=== PATIENT | male | born 1945 | race Asian ===

== ENCOUNTER 2020-07-06 13:56 | Emergency (ER) | payer OTHER ==
[2020-07-06] MEDS ORDERED: BACITRACIN ZINC OINT 1 PACKET TOP STA (15:23)
--- NOTE | 2020-07-06 15:27 | ED Physician Documentation ---
PD HPI SKIN - Stated complaint Stated Complaint: WOUND ON BACK - Chief complaint Chief Complaint: Wound - History obtained from History obtained from: Patient - Additional information Additional information: Patient comes emergency department complaining of drainage from a chronic wound on his back. Patient states that he has had a lump on his back for years but that over the last few days, he noticed that a smaller more tense lump formed on top of that. He states that he tried to squeeze it and he felt it pop and then he had white drainage out of it. Patient denies fevers or chills. No pain. He has no other complaints at this time. Review of Systems Ten Systems: 10 systems reviewed and negative Constitutional: reports: Reviewed and negative Eyes: reports: Reviewed and negative Ears: reports: Reviewed and negative Nose: reports: Reviewed and negative Throat: reports: Reviewed and negative Cardiac: reports: Reviewed and negative Respiratory: reports: Reviewed and negative GI: reports: Reviewed and negative : reports: Reviewed and negative Skin: reports: Other (Lesion) Musculoskeletal: reports: Reviewed and negative Neurologic: reports: Reviewed and negative Psychiatric: reports: Reviewed and negative Endocrine: reports: Reviewed and negative Immunocompromised: reports: Reviewed and negative PD PAST MEDICAL HISTORY - Past Medical History Cardiovascular: Hypertension, High cholesterol, Atrial fibrillation, Arrhythmia Respiratory: COPD, Emphysema, Pneumonia, Shortness of breath, Sleep apnea Endocrine/Autoimmune: None GI: Ulcers Psych: Depression Derm: None, Other - Past Surgical History Cardiovascular: AAA - Allergies Allergies/Adverse Reactions: Allergies Allergy/AdvReac Type Severity Reaction Status Date / Time pentazocine [From Talwin] Allergy Hallucinati Verified 07/06/20 14:08 ons - Social History Does the pt smoke?: Yes Smoking Status: Current every day smoker Does the pt drink ETOH?: Yes ETOH Use: Beer Does the pt have substance abuse?: No - Immunizations Immunizations are current?: Yes PD ED PE NORMAL - Vitals Vital signs reviewed: Yes - General General: Alert and oriented X 3, No acute distress - HEENT HEENT: Atraumatic, PERRL, EOMI, Moist mucous membranes - Neck Neck: Supple, no meningeal sign - Respiratory Respiratory: No respiratory distress - Derm Derm: Normal color, Warm and dry, No rash, Other (7 mm diameter chronic- appearing wound in patient's midline of mid back, with a small amount of thick, purulent drainage expressible. Surrounding tissue is not erythematous or indurated. There is no fluctuance. Tissue within the open wound appears healthy.) - Extremities Extremities: No deformity - Neuro Neuro: Alert and oriented X 3 - Psych Psych: Normal mood, Normal affect Results - Vitals Vitals: Vital Signs - 24 hr 07/06/20 07/06/20 14:00 15:35 Temperature 36.4 C L 36.4 C L Heart Rate 78 66 Respiratory 18 18 Rate Blood Pressure 109/69 122/76 O2 Saturation 99 97 Oxygen O2 Source Room air PD MEDICAL DECISION MAKING - ED course Complexity details: considered differential, d/w patient ED course: Drainage was expressed from the wound and the wound was irrigated with 0.9 normal saline. Dressing was placed. I discussed with the patient that I do not find any evidence of a cellulitis associated with his wound and that I do not feel he needs oral antibiotics for this. We have discussed wound care at home and the need for follow-up. Departure - Departure Disposition: 01 Home, Self Care Clinical Impression: Wound infection Condition: Stable Instructions: ED Wound Care Comments: The wound itself looks good, And just had some drainage that needed to be cleaned out. You may keep a bandage on top of it as long as it is oozing, and then just revert to a Band-Aid. The wound will heal itself over time. Discharge Date/Time: 07/06/20 15:35
[2020-07-06 15:37] VITALS: BP 122/76
== END 2020-07-06 15:35 | disposition home or self-care (01) ==
LOC: ED 13:56
DX: S31.000A Unspecified open wound of lower back and pelvis without penetration into retroperitoneum, initial encounter (principal); B96.89 Other specified bacterial agents as the cause of diseases classified elsewhere; X58.XXXA Exposure to other specified factors, initial encounter; I10 Essential (primary) hypertension; I48.91 Unspecified atrial fibrillation; F17.200 Nicotine dependence, unspecified, uncomplicated
CPT/HCPCS: 99282; A9270

== ENCOUNTER 2021-11-15 15:22 | Outpatient (CLI) | payer OTHER ==
[2021-11-15 15:38] LABS: BASOPHILS % (AUTO) 0.5 %; EOSINOPHILS # (AUTO) 0.2 10^3/uL (0.0-0.7); HGB - HEMOGLOBIN 14.6 g/dL (14.0-18.0); LYMPHOCYTES % (AUTO) 26.9 %; MEAN CORPUSCULAR HEMOGLOBIN 29.9 pg (27.0-31.0); MEAN CORPUSCULAR HGB CONC 33.2 g/dL (32.0-36.0); MEAN CORPUSCULAR VOLUME 90.2 fL (80.0-94.0); MEAN PLATELET VOLUME 9.8 fL (7.4-11.4); MONOCYTES # (AUTO) 0.6 10^3/uL (0.0-1.0); MONOCYTES % (AUTO) 8.3 %; NEUTROPHILS # (AUTO) 4.6 10^3/uL (1.5-6.6); PLT - PLATELET COUNT 178 10^3/uL (130-450); RED BLOOD COUNT 4.88 10^6/uL (4.70-6.10); RED CELL DISTRIBUTION WIDTH 14.1 % (12.0-15.0); WHITE BLOOD COUNT 7.5 x10^3/uL (4.8-10.8)
[2021-11-15 16:10] LABS: ALBUMIN 3.6 g/dL (3.2-5.5); ALBUMIN/GLOBULIN RATIO 1.1 (1.0-2.2); ALKALINE PHOSPHATASE 85 IU/L (42-121); ALT ALANINE AMINOTRANSFERASE 16 IU/L (10-60); AST ASPARTATE AMINOTRANSFERASE 24 IU/L (10-42); BILIRUBIN,TOTAL 1.3 mg/dL (0.2-1.0); BUN - BLOOD UREA NITROGEN 22 mg/dL (6-20); CALCIUM 9.2 mg/dL (8.5-10.3); CARBON DIOXIDE - CO2 24 mmol/L (21-32); CHLORIDE 101 mmol/L (101-111); CHOL/HDL RATIO 2.9 (<5.0); CHOLESTEROL 139 mg/dL; CREATININE 0.9 mg/dL (0.6-1.2); GFR - MDRD 82 (>89); GLUCOSE 106 mg/dL (70-100); HDL CHOLESTEROL 48 mg/dL; LDL CHOLESTEROL,CALCULATED 73 mg/dL; LDL/HDL RATIO 1.5 (<3.6); POTASSIUM 4.2 mmol/L (3.5-5.0); SODIUM 135 mmol/L (135-145); TOTAL PROTEIN 6.8 g/dL (6.7-8.2); TRIGLYCERIDES 91 mg/dL; VLDL CHOLESTEROL 18 mg/dL
[2021-11-15 16:11] LABS: THYROID STIMULATING HORMONE 1.12 uIU/mL (0.34-5.60)
[2021-11-15 19:55] LABS: ESTIMATED AVERAGE GLUCOSE 114 mg/dL (70-100); HEMOGLOBIN A1c% 5.6 % (4.27-6.07)
== END 2021-11-15 15:23 | disposition home or self-care (01) ==
LOC: LAB.R 15:22
PROVIDERS: ATTEND Nurse Practitioner Family
DX: I48.91 Unspecified atrial fibrillation (principal); E78.49 Other hyperlipidemia; I10 Essential (primary) hypertension; J44.9 Chronic obstructive pulmonary disease, unspecified
CPT/HCPCS: 80053; 80061; 81599; 82172; 82306; 82607; 83036; 83721; 84153; 84443; 85025

== ENCOUNTER 2021-11-18 08:00 | Outpatient (CLI) | payer MEDICARE, OTHER ==
[2021-11-18 19:04] LABS: BILIRUBIN,URINE NEGATIVE (NEGATIVE); CLARITY,URINE CLEAR (CLEAR); GLUCOSE, URINE (UA) NEGATIVE (NEGATIVE); KETONES,URINE (UA) NEGATIVE (NEGATIVE); LEUKOCYTE ESTERASE, URINE NEGATIVE (NEGATIVE); NITRITE,URINE POSITIVE (NEGATIVE); OCCULT BLOOD,URINE NEGATIVE (NEGATIVE); PROTEIN,URINE NEGATIVE (NEGATIVE); UROBILINOGEN,URINE 0.2 (NORMAL) E.U./dL (NORMAL)
[2021-11-18 19:12] LABS: BACTERIA,URINE Few /HPF (None Seen); RBC,URINE None Seen /HPF (0-5); SQUAMOUS EPITHELIAL CELL,UR NONE SEEN (<= Few); WBC,URINE 0-3 /HPF (0-3)
== END 2021-11-18 23:59 ==
LOC: LAB.R 08:00
PROVIDERS: ATTEND Nurse Practitioner Family
DX: N39.0 Urinary tract infection, site not specified (principal)
CPT/HCPCS: 81001; 87086

== ENCOUNTER 2022-02-01 14:10 | Outpatient (CLI) | payer OTHER | END 2022-02-01 14:11 | disposition critical access hospital (66) | LOC: EMS 14:10 | DX: S01.01XA Laceration without foreign body of scalp, initial encounter (principal); W01.198A Fall on same level from slipping, tripping and stumbling with subsequent striking against other object, initial encounter; Y92.009 Unspecified place in unspecified non-institutional (private) residence as the place of occurrence of the external cause | CPT/HCPCS: A0425; A0429 ==

== ENCOUNTER 2022-02-01 14:14 | Emergency (ER) | payer OTHER ==
[2022-02-01] MEDS ORDERED: TETANUS/DIPHTHERIA/PERTUSSIS 0.5 ML SYRINGE IM ONE (14:36)
[2022-02-01] MEDS ORDERED: LIDOCAINE 1%-EPI 1:100000 20 ML MDV SUBQ STA (15:02)
--- NOTE | 2022-02-01 15:05 | ED Physician Documentation ---
History of Present Illness - Stated complaint Stated Complaint: GLF - Chief complaint Chief Complaint: Laceration - Additonal information Additional information: 76-year-old male presents emergency department for evaluation of posterior scalp laceration. He was in his garage and reaching behind himself when he lost balance falling backward striking his head on a wooden crate. There was no loss of consciousness. He was able to get up on his own but had a rather large posterior scalp plaque that has been bleeding profusely. Patient has a history of AAA (s/p repair), HTN and COPD but is not anticoagulated though he does take a daily 81 mg aspirin. He denies focal neck pain but states that it stiff. He otherwise feels well denies pain in his back hips or legs. Review of Systems Constitutional: denies: Fever, Chills Eyes: reports: Reviewed and negative Throat: reports: Reviewed and negative Cardiac: reports: Reviewed and negative Respiratory: reports: Reviewed and negative GI: reports: Reviewed and negative : reports: Reviewed and negative Skin: reports: Laceration (s) Musculoskeletal: reports: Neck pain Neurologic: reports: Headache, Head injury. denies: Near syncope, Seizure, Confused, LOC PD PAST MEDICAL HISTORY - Past Medical History Cardiovascular: Hypertension, High cholesterol, Atrial fibrillation, Arrhythmia Respiratory: COPD, Emphysema, Pneumonia, Shortness of breath, Sleep apnea Endocrine/Autoimmune: None GI: Ulcers Psych: Depression Derm: None, Other - Past Surgical History Cardiovascular: AAA - Present Medications Home Medications: Ambulatory Orders Medication Instructions Recorded Confirmed Acetaminophen [Tylenol] 650 mg PO Q6H PRN 02/01/22 02/01/22 Aspirin [Aspirin EC] 81 mg PO DAILY 02/01/22 02/01/22 Atorvastatin [Lipitor] 0 mg ORAL HS 02/01/22 02/01/22 Indomethacin, Submicronized 0 mg PO TID PRN 02/01/22 02/01/22 [Indomethacin] Losartan Potassium 12.5 mg PO DAILY 02/01/22 02/01/22 Metoprolol Tartrate [Lopressor] 25 mg PO BID 02/01/22 02/01/22 - Allergies Allergies/Adverse Reactions: Allergies Allergy/AdvReac Type Severity Reaction Status Date / Time pentazocine [From Talwin] Allergy Hallucinati Verified 07/06/20 14:08 ons - Social History Does the pt smoke?: Yes Smoking Status: Current every day smoker Does the pt drink ETOH?: Yes Does the pt have substance abuse?: No - Immunizations Immunizations are current?: Yes PD ED PE NORMAL - General General: Alert and oriented X 3, No acute distress. No: Well developed/nourished - HEENT HEENT: Moist mucous membranes, Pharynx benign. No: Atraumatic - Neck Neck: Supple, no meningeal sign, Other (Full active and passive range of motion. Mild stiffness and tenderness at the base of the cervical spine.) - Cardiac Cardiac: No: RRR (Irregularly irregular. Normal rate.), No murmur - Respiratory Respiratory: No respiratory distress, Clear bilaterally - Derm Derm: Normal color, Warm and dry, Other (3 cm laceration right posterior occiput. Bleeding is controlled with pressure) - Extremities Extremities: No deformity, No tenderness to palpate, Normal ROM s pain, No edema (Bilateral pedal edema unchanged from baseline) - Neuro Neuro: Alert and oriented X 3, pharmacy consultant 2-12 intact, No motor deficit, Normal speech, Other (normal gait with cane at baseline) Eye Opening: Spontaneous Motor: Obeys Commands Verbal: Oriented GCS Score: 15 - Psych Psych: Normal mood Results - Vitals Vitals: Vital Signs - 24 hr 02/01/22 02/01/22 02/01/22 14:22 16:28 18:00 Temperature 36.3 C L Heart Rate 94 97 97 Respiratory 17 15 15 Rate Blood Pressure 154/91 H 159/103 H 158/101 H O2 Saturation 100 100 100 02/01/22 02/01/22 02/01/22 18:43 19:17 20:30 Temperature Heart Rate 104 H 107 H 91 Respiratory 18 17 18 Rate Blood Pressure 151/99 H 155/100 H 155/108 H O2 Saturation 100 100 100 02/01/22 02/01/22 21:35 22:06 Temperature Heart Rate 98 95 Respiratory 17 12 Rate Blood Pressure 147/93 H 131/99 H O2 Saturation 98 98 Oxygen O2 Source Room air - EKG (time done) 1626 Rate: Rate (enter#) (100) Rhythm: NSR [place]: RAD Intervals: No: Prolonged QT QRS: Low voltage Ischemia: Non specific changes Compare to prior EKG: Old EKG unavailable Computer interpretation: Agree with computer - Labs Labs: Laboratory Tests 02/01/22 02/01/22 02/01/22 15:47 15:47 15:47 WBC 8.0 RBC 5.17 Hgb 15.0 Hct 46.1 MCV 89.2 MCH 29.0 MCHC 32.5 RDW 14.1 Plt Count 165 MPV 9.2 Neut # (Auto) 6.2 Lymph # (Auto) 1.0 L [place] # (Auto) 0.6 Eos # (Auto) 0.1 Baso # (Auto) 0.0 Absolute Nucleated RBC 0.00 Nucleated RBC % 0.0 PT 13.3 H INR 1.2 Sodium 138 Potassium 4.1 Chloride 101 Carbon Dioxide 26 Anion Gap 11.0 BUN 15 Creatinine 0.9 Estimated GFR (MDRD) 82 L Glucose 108 H Calcium 9.2 Total Bilirubin 1.4 H AST 27 ALT 17 Alkaline Phosphatase 82 Total Protein 7.4 Albumin 3.7 Globulin 3.7 Albumin/Globulin Ratio 1.0 Lipase 30 Urine Color Urine Clarity Urine pH Ur Specific [place] Urine Protein Urine Glucose (UA) Urine Ketones Urine Occult Blood Urine Nitrite Urine Bilirubin Urine Urobilinogen Ur Leukocyte Esterase Ur Microscopic Review Urine Culture Comments 02/01/22 17:11 WBC RBC Hgb Hct MCV MCH MCHC RDW Plt Count MPV Neut # (Auto) Lymph # (Auto) [place] # (Auto) Eos # (Auto) Baso # (Auto) Absolute Nucleated RBC Nucleated RBC % PT INR Sodium Potassium Chloride Carbon Dioxide Anion Gap BUN Creatinine Estimated GFR (MDRD) Glucose Calcium Total Bilirubin AST ALT Alkaline Phosphatase Total Protein Albumin Globulin Albumin/Globulin Ratio Lipase Urine Color YELLOW Urine Clarity CLEAR Urine pH 7.0 Ur Specific [place] 1.020 Urine Protein NEGATIVE Urine Glucose (UA) NEGATIVE Urine Ketones NEGATIVE Urine Occult Blood NEGATIVE Urine Nitrite NEGATIVE Urine Bilirubin NEGATIVE Urine Urobilinogen 0.2 (NORMAL) Ur Leukocyte Esterase NEGATIVE Ur Microscopic Review NOT INDICATED Urine Culture Comments NOT INDICATED - Rads (name of study) Head CT Radiology: Final report received (Thin hyperdense subdural hematoma overlying the right cerebral convexity measuring up to 4 mm in thickness along the right parietal occipital region. Also along the left tentorium measuring up to 2 mm in thickness. No mass-effect or midline shift. No intraparenchymal hemorrhage. ) cervical CT Radiology: Final report received (No acute cervical spine fracture or subluxation. Multilevel spondylosis) cxr Radiology: Final report received (acute process), EMP read indepedently CT head Radiology: Final report received (Interval increase in subdural hemorrhage with a left holohemispheric subdural hematoma. Small right subdural hematoma minimally increased in size. No shift or other mass-effect.), Other Procedures - Laceration (location) scalp Length in cm: 3 Wound type: Linear, Into subcut fat, Contaminated Anesthesia: Lidocaine 1% with epi Wound preparation: Betadine, Irrigated copiously NS Skin layer closure: Kayleen (5 kayleen placed) Other: Patient tolerated well PD MEDICAL DECISION MAKING - ED course Complexity details: reviewed results, re-evaluated patient, considered differential, d/w patient ED course: [id number] male presents emergency department for evaluation of a right posterior occipital scalp lack. He was in his garage reaching behind when he lost balance falling backwards striking his head on a wooden box. There was no loss of consciousness. He denies blood thinners but does take a daily aspirin. He arrives elderly and frail-appearing but otherwise feels well. He has no focal deficits. Posterior scalp lack has been closed with 5 kayleen. However given the age and mechanism a CT scan was completed and unfortunately does show Right frontal subdural hematoma with some extension into the tentorium. 4 mm diameter maximal thickness with no shift. We will reach out to neurosurgery at [facility]. 1700: Spoke with neurosurgeon on-call at [facility] Dr. Clifford Cosem who makes the recommendation for repeat CT of the head 4 to [address] hours after the initial CT was done. Given that patient has no focal neurodeficits if he remained stable patient would be stable for discharge home. Would recommend holding aspirin for 1 week but patient would not need a repeat CT moving forward unless symptoms changed 2225: I have been notified that the CT scan shows increased subdural hematoma along the left hemisphere with increased dimension now to 6 mm. Patient continues to have no mass-effect or midline shift. He continues to be a [place] of 15 with no focal deficits. I have discussed this finding with the patient and he is in agreement to transfer. We are contacting [facility] 2300: Pt has been accepted to [facility] ED By neurosurgeon Dr. Marc. Patient will be flown directly to [facility] given the late hour of the day and the time to transport. [facility] would like to administer platelets which are not available at [facility] given the worsening subdural hematoma. The [employer] system is also no longer runningApproprpaz ROMANO paperwork completed - Critical Care Time(min): 30 Time Includes: Direct patient care, Reassess patient, Coordinate care, See progress note Data interpretation: See progress note (repeat neurological evaluation, help cooridinate care for SDH) Departure - Departure Disposition: 02 Transfer Acute Care Hosp Clinical Impression: Subdural hematoma, Fall from ground level
--- NOTE | 2022-02-01 15:45 | CT Report ---
PROCEDURE: HEAD WO INDICATIONS: glf; large posterior occiput lac TECHNIQUE: Noncontrast 4.5 mm thick angled axial sections acquired from the foramen magnum to the vertex. For r adiation dose reduction, the following was used: automated exposure control, adjustment of mA and/or kV according to patient size. COMPARISON: None. FINDINGS: Image quality: Excellent. Hyperdense extra axial collection is seen along the superior aspect of the left tentorium measuring u p to 2 mm in thickness. Additional hyperdense collection is seen along the right cerebral convexity m easuring up to 2 mm in thickness anteriorly and approximately 4 mm overlying the right parietal and o ccipital lobes. There is no significant mass effect or midline shift. The basal cisterns are patent. No intraparenchymal hemorrhage is seen. The ventricles are age-appropriate in size and configuration with mild generalized cerebral volume loss. Minimal scattered hypodensities in the subcortical and pe riventricular white matter are most commonly seen in setting of chronic mitral vascular ischemic eng ges. A scalp laceration is seen over the right parieto-occipital region with small scalp hematoma. No asso ciated skull fracture. Calvarium and visualized facial bones are intact, without suspicious lesions. There is opacification of the partially visualized left maxillary sinus. The paranasal sinuses are ot herwise clear. Mastoid air cells are clear. IMPRESSION: 1.Thin hyperdense subdural hematomas overlying the right cerebral convexity measuring up to 4 mm in t hickness along the right parieto-occipital region, and along the left tentorium measuring up to 2 mm in thickness. No significant mass effect or midline shift. No intraparenchymal hemorrhage. No signifi cant mass effect or midline shift. 2.Mild age-related cerebral volume loss and mild chronic microvascular ischemic changes. 3.Right parieto-occipital scalp laceration and small scalp hematoma. No acute skull fracture. 4.Opacification of the partially visualized left maxillary sinus. Findings were discussed with the referring provider, PATSY Coffey by telephone on 02/01/2022 at 3:43 PM. Reviewed by: Scar Ochoa MD on 02/01/2022 3:43 PM PDT Approved by: Scar Ochoa MD on 02/01/2022 3:43 PM PDT Station ID: [id number]
--- NOTE | 2022-02-01 15:51 | CT Report ---
PROCEDURE: CERVICAL SPINE WO INDICATIONS: GLF; stiff neck TECHNIQUE: Noncontrast 3 mm thick sections acquired from the skull base to the T4 level. Sagittal and coronal r eformats were then constructed. For radiation dose reduction, the following was used: automated exp osure control, adjustment of mA and/or kV according to patient size. COMPARISON: None. FINDINGS: Image quality: Excellent. Bones: No acute fractures or dislocations. Visualized superior ribs are intact. There is reversal o f the normal cervical lordosis. Mild grade 1 anterolisthesis of C2 on C3 is seen measuring 2 mm. Mild to minor retrolisthesis of C4 on C5 and C5 on C6. 2 mm anterolisthesis of C7 on T1. Multiple displac ed narrowing and degenerative endplate changes are seen throughout the cervical spine as well as mult ilevel uncovertebral joint and facet hypertrophy. Corticated ossification along the dorsal aspect of the T1 spinous process may be related to a remote prior injury. Soft tissues: Prevertebral soft tissues are normal in thickness. No paravertebral hematomas. No ap ical pneumothoraces. Biapical moderate to severe emphysematous changes are seen. Atherosclerotic issa cifications are seen at the carotid bifurcations and the proximal arch vessels. IMPRESSION: 1.No acute cervical spine fracture or subluxation. 2.Multilevel spondylosis. Reviewed by: Scar Ochoa MD on 02/01/2022 3:50 PM PDT Approved by: Scar Ochoa MD on 02/01/2022 3:50 PM PDT Station ID: [id number]
--- OUTSIDE RECORDS SUMMARY | 2022-02-01 15:52 | EXTERNAL MEDICAL SUMMARY RPT | Continuity of Care Document ---
:1945 Author Organization [facility] Address [address] [place] [address] Phone Allergies No information. Encounters No information. Medications No information. Problems date description facility [id number] Essential (primary) hypertension [facility] Results No information.
[2022-02-01 15:56] LABS: BASOPHILS % (AUTO) 0.4 %; EOSINOPHILS # (AUTO) 0.1 10^3/uL (0.0-0.7); EOSINOPHILS % (AUTO) 1.1 %; HCT - HEMATOCRIT 46.1 % (42.0-52.0); LYMPHOCYTES % (AUTO) 12.8 %; MEAN CORPUSCULAR HGB CONC 32.5 g/dL (32.0-36.0); MEAN CORPUSCULAR VOLUME 89.2 fL (80.0-94.0); MEAN PLATELET VOLUME 9.2 fL (7.4-11.4); MONOCYTES # (AUTO) 0.6 10^3/uL (0.0-1.0); MONOCYTES % (AUTO) 7.5 %; NEUTROPHILS # (AUTO) 6.2 10^3/uL (1.5-6.6); NEUTROPHILS % (AUTO) 77.8 %; PLT - PLATELET COUNT 165 10^3/uL (130-450); RED BLOOD COUNT 5.17 10^6/uL (4.70-6.10); RED CELL DISTRIBUTION WIDTH 14.1 % (12.0-15.0)
[2022-02-01 16:03] LABS: INR 1.2 (0.8-1.2); PT - PROTHROMBIN TIME 13.3 secs (9.9-12.6)
[2022-02-01 16:07] LABS: ALBUMIN 3.7 g/dL (3.2-5.5); BILIRUBIN,TOTAL 1.4 mg/dL (0.2-1.0); CALCIUM 9.2 mg/dL (8.5-10.3); CREATININE 0.9 mg/dL (0.6-1.2); POTASSIUM 4.1 mmol/L (3.5-5.0); TOTAL PROTEIN 7.4 g/dL (6.7-8.2)
--- NOTE | 2022-02-01 16:24 | XRAY Report ---
PROCEDURE: Chest 1 View X-Ray INDICATIONS: chest pain TECHNIQUE: One view of the chest was acquired. COMPARISON: None FINDINGS: Surgical changes and devices: None. Lungs and pleura: No pleural effusions or pneumothorax. Lungs are clear. It is noted that the cost ophrenic angles are not fully included within the [id number]. Mediastinum: Mediastinal contours appear normal. Heart size is normal. Bones and chest wall: No suspicious bony lesions. Overlying soft tissues appear unremarkable. IMPRESSION: No acute pulmonary process., Noting costophrenic angles are not fully included in the [id number] a nd unable to be evaluated. Reviewed by: Blanche Owens MD on 02/01/2022 3:23 PM ERIKA Approved by: Blanche Owens MD on 02/01/2022 3:23 PM ERIKA Station ID: [id number]
[2022-02-01 17:26] LABS: BILIRUBIN,URINE NEGATIVE (NEGATIVE); GLUCOSE, URINE (UA) NEGATIVE (NEGATIVE); KETONES,URINE (UA) NEGATIVE (NEGATIVE); LEUKOCYTE ESTERASE, URINE NEGATIVE (NEGATIVE); NITRITE,URINE NEGATIVE (NEGATIVE); OCCULT BLOOD,URINE NEGATIVE (NEGATIVE); PROTEIN,URINE NEGATIVE (NEGATIVE); UROBILINOGEN,URINE 0.2 (NORMAL) E.U./dL (NORMAL)
[2022-02-01 17:30] LABS: CLARITY,URINE CLEAR (CLEAR)
[2022-02-01] MEDS ORDERED: SODIUM CHLORIDE 0.9% 1,000 ML IV STA (22:27)
--- NOTE | 2022-02-01 22:28 | CT Report ---
PROCEDURE: HEAD WO INDICATIONS: f/u SDH TECHNIQUE: Noncontrast 4.5 mm thick angled axial sections acquired from the foramen magnum to the vertex. radiat ion dose reduction, the following was used: automated exposure control, adjustment of mA and/or kV a ccording to patient size. COMPARISON: Previous CT head from 02/01/2022. FINDINGS: Image quality: There is mild motion artifact. CSF spaces: There is mild to moderate cerebral volume loss with prominence of the ventricles and sul ci. Basal cisterns are patent. Brain: There is a holohemispheric left subdural hematoma measuring up to 0.6 cm in thickness along t he tentorium, increased from 0.2 cm on the prior study. New components are demonstrated along the fal x, laterally, and along the cerebral convexity superiorly. On the right, a subdural hematoma at the c erebral convexity measures up to 0.6 cm, minimally increased in size compared to the prior study. No midline shift or other mass effect. Lowry-white matter interface appears preserved. There are subcorti issa and periventricular white matter hypodensities consistent with mild chronic small vessel ischemic changes. Skull and face: Calvarium and visualized facial bones appear intact. There is a right posterior occ ipital scalp hematoma with overlying skin kayleen. Sinuses: Visualized sinuses demonstrate opacification of the visualized left maxillary sinus. There is mild mucosal thickening within the ethmoid sinuses. Mastoid air cells are clear. IMPRESSION: 1. Interval increase in subdural hemorrhage with a left holohemispheric subdural hematoma as describe d. Small right subdural hematoma convexity appears minimally increased in size. No midline shift or o ther mass effect. Findings discussed with ANIA St in the emergency room on 02/01/2022 at 10:20 PM. Reviewed by: Guy Bay MD on 02/01/2022 10:26 PM PDT Approved by: Guy Bay MD on 02/01/2022 10:26 PM PDT Station ID: [id number]
[2022-02-01 23:16] VITALS: BP 121/85
== END 2022-02-01 23:52 | disposition short-term general hospital (02) ==
LOC: EDUNIT# → ED 14:14
DX: S06.5X0A Traumatic subdural hemorrhage without loss of consciousness, initial encounter (principal); S01.01XA Laceration without foreign body of scalp, initial encounter; R40.2412 Glasgow coma scale score 13-15, at arrival to emergency department; W18.39XA Other fall on same level, initial encounter; W22.09XA Striking against other stationary object, initial encounter; Y93.89 Activity, other specified; Y92.008 Other place in unspecified non-institutional (private) residence as the place of occurrence of the external cause; F17.200 Nicotine dependence, unspecified, uncomplicated; Z79.82 Long term (current) use of aspirin; Z20.822 Contact with and (suspected) exposure to COVID-19
CPT/HCPCS: 12002; 36415; 80053; 81001; 81003; 83690; 85025; 85610; 87086; 90471; 93005; 99285; 99291